=== PATIENT | male | born 1975 | race Caucasian/White ===

== ENCOUNTER 2021-11-01 13:34 | Emergency (ER) | payer BC, OTHER ==
[2021-11-01 13:38] VITALS: BP 148/74; PULSE 78; RESP 18; TEMP 98.4; BMI 25.1
[2021-11-01] MEDS ORDERED: MAG HYDROX/AL HYDROX/SIMETH 30 ML UNIT-DOSE CUP PO ONE (14:11)
[2021-11-01] MEDS ORDERED: FAMOTIDINE 20 MG TABLET PO ONE (14:11)
[2021-11-01] MEDS ORDERED: FAMOTIDINE 20 MG TABLET ONE (14:37)
[2021-11-01] MEDS ORDERED: MAG HYDROX/AL HYDROX/SIMETH 30 ML UNIT-DOSE CUP ONE (14:38)
== END 2021-11-01 15:36 | disposition home or self-care (01) ==
LOC: JER 13:34
DX: K21.9 Gastro-esophageal reflux disease without esophagitis (principal)
CPT/HCPCS: 99283-25